=== PATIENT | female | born 1985 | race Caucasian/White ===

== ENCOUNTER 2017-11-02 06:39 | Day surgery (SDC) | payer OTHER ==
[~2017-11-02] VITALS: Ht 152.4 cm; Wt 94.3 kg
[~2017-11-02 06:39] MED LIST: NAPROSYN500 MG PO; PERCOCET 5/31 TABLET PO; [UNRECOGNIZED DRUG - OTHER] PO
[2017-11-02 07:38] VITALS: BP 110/67
[2017-11-02] MEDS ORDERED: IBUPROFEN800 MG PO (09:41)
[2017-11-02] MEDS ORDERED: ENDOCET 5-3251 EACH PO (09:41)
[2017-11-02 11:13] VITALS: BP 124/64
[2017-11-02 11:58] VITALS: BP 136/63
== END 2017-11-02 12:11 | disposition home or self-care (01) ==
LOC: SDC 06:39
DX: Z30.2 Encounter for sterilization (principal); Z30.432 Encounter for removal of intrauterine contraceptive device; Z87.891 Personal history of nicotine dependence
CPT/HCPCS: 88300; J0131; J0330; J1100; J1170; J1885; J2250; J2405; J2710; S0020

== ENCOUNTER 2017-11-28 14:50 | Emergency (ER) | payer OTHER ==
[~2017-11-28] VITALS: Ht 152.4 cm; Wt 94.7 kg
[~2017-11-28 14:50] MED LIST changes: +ENDOCET 5-3251 EACH PO; +IBUPROFEN800 MG PO
[2017-11-28] MEDS ORDERED: ANAPROX DS550 M1 PO (17:09)
[2017-11-28 17:46] VITALS: BP 145/85
== END 2017-11-28 17:46 | disposition home or self-care (01) ==
LOC: EME 14:50
DX: S90.121A Contusion of right lesser toe(s) without damage to nail, initial encounter (principal); W22.09XA Striking against other stationary object, initial encounter; Y92.89 Other specified places as the place of occurrence of the external cause
CPT/HCPCS: 73630; 99281; 99284